=== PATIENT | male | born 1985 | race Caucasian/White ===

== ENCOUNTER 2021-06-10 12:35 | Emergency (ER) | payer OTHER ==
[~2021-06-10] VITALS: Ht 193 cm; Wt 159.0 kg
[2021-06-10] MEDS ORDERED: LISI20TA31 PO (12:55)
[2021-06-10] MEDS ORDERED: LISINOPRIL 5MG TABLET PO SCH (13:15)
[2021-06-10] MEDS ORDERED: LORAZEPAM 1MG TABLET PO ONE (13:15)
[2021-06-10 16:04] VITALS: BP 219/142
== END 2021-06-10 16:09 | disposition home or self-care (01) ==
LOC: ER 12:35
DX: S80.811A Abrasion, right lower leg, initial encounter (principal); F15.90 Other stimulant use, unspecified, uncomplicated; I10 Essential (primary) hypertension; Z98.890 Other specified postprocedural states; X58.XXXA Exposure to other specified factors, initial encounter; Y93.89 Activity, other specified; Y92.89 Other specified places as the place of occurrence of the external cause; Y99.8 Other external cause status
CPT/HCPCS: 99283; Z7610

== ENCOUNTER 2022-06-25 04:48 | Emergency (ER) | payer OTHER ==
[~2022-06-25] VITALS: Ht 185.4 cm; Wt 120.0 kg
[~2022-06-25 04:48] MED LIST: LISI20TA31 PO
[2022-06-25] MEDS ORDERED: MORPHINE SULFATE 4 MG/ML CPJ (NOT FOR IM USE) IV ONE ×2 (05:00→06:00)
[2022-06-25] MEDS ORDERED: ONDANSETRON HCL 4MG/2ML INJ IV ONE (05:00)
[2022-06-25] MEDS ORDERED: HYDRALAZINE 20MG/ML VIAL IV NR (05:15)
[2022-06-25 05:20] LABS: BASOPHILS % 1.4 % (0.0-2.0); EOSINOPHILS % 2.7 % (0.0-5.0); HEMATOCRIT. 42.6 % (42.0-52.0); HEMOGLOBIN. 14.3 g/dL (14.0-18.0); LYMPHOCYTES % 38.4 % (20.0-50.0); MEAN CORPUSCULAR HEMOGLOBIN 28.1 pg (28.0-32.0); MEAN CORPUSCULAR VOLUME 83.9 fL (80.0-94.0); MONOCYTES % 10.8 % (2.0-8.0); NEUTROPHILS % 46.7 % (40.0-76.0); PLATELET 216 x1000/uL (130-400); RED BLOOD CELL COUNT 5.09 mill/uL (4.7-6.1); RED CELL DISTRIBUTION WIDTH 15.7 % (11.6-14.6)
[2022-06-25 05:27] LABS: CHLORIDE 105 mEq/L (98-107)
[2022-06-25 05:38] LABS: ETHANOL BLOOD < 10 mg/dL
[2022-06-25] MEDS ORDERED: IOHEXOL-350 100 ML BOTTLE ONE (05:40)
[2022-06-25] MEDS ORDERED: DIAZEPAM 5 MG/ML 2ML CPJ IV NR (06:45)
[2022-06-25] MEDS ORDERED: KETAMINE HCL 50 MG/ML 10ML IV ONE (07:15)
[2022-06-25] MEDS ORDERED: NICARDIPINE 50 MG in SODIUM CHLORIDE 0.9% 230 ML IV PRN (07:45)
[2022-06-25] MEDS ORDERED: LABETALOL 5MG/ML SYR 20 MG/4 ML SYRINGE IV NR (07:45)
[2022-06-25] MEDS ORDERED: NICARDIPINE 40 MG/200 ML PREMIX 200 ML IV PRN (08:00)
[2022-06-25] MEDS ORDERED: ESMOLOL 2500MG PREMIX 250 ML IV NR (09:15)
[2022-06-25] MEDS ORDERED: ESMOLOL 2500MG PREMIX 250 ML IV ONE (09:15)
[2022-06-25 09:19] LABS: *AMPHETAMINES SCREEN URINE PRESUMTIVE POSITIVE (NEGATIVE); *BARBITURATES SCREEN URINE NEGATIVE (NEGATIVE); *BENZODIAZEPINES SCREEN URINE NEGATIVE (NEGATIVE); *COCAINE SCREEN URINE NEGATIVE (NEGATIVE); CANNABINOID URINE SCREEN NEGATIVE (NEGATIVE); METHADONE URINE SCREEN NEGATIVE (NEGATIVE); OPIATES URINE SCREEN PRESUMTIVE POSITIVE (NEGATIVE); PHENCYCLIDINE URINE SCREEN NEGATIVE (NEGATIVE)
[2022-06-25 12:17] VITALS: BP 125/54
== END 2022-06-25 12:17 | disposition short-term general hospital (02) ==
LOC: ER 04:48 → CANBEDREQ 08:39 → ER 12:17
DX: I71.00 Dissection of unspecified site of aorta (principal); I10 Essential (primary) hypertension; Z91.013 Allergy to seafood
CPT/HCPCS: 36415; 71045; 71275; 74174; 80053; 80305; 80320; 83690; 83880; 84484; 85025; 93005; 96365; 96375; 96376; 99291; J0360; J2270; J2405; J3360; J3490; Q9967; Z7610; G0480